=== PATIENT | female | born 1945 | race Two or more races ===

== ENCOUNTER 2020-04-13 05:43 | Day surgery (SDC) | payer OTHER ==
[~2020-04-13 05:43] MED LIST: AMLO PO; CLON PO; FENOFIBRATE PO; GLUMETZA500 MG PO; HUMULIN; [UNRECOGNIZED DRUG - OTHER] PO
== END 2020-04-13 15:50 | disposition home or self-care (01) ==
LOC: CIR.AMB 05:43
PROVIDERS: ATTEND Colon & Rectal Surgery
DX: K64.8 Other hemorrhoids (principal); K64.4 Residual hemorrhoidal skin tags; Z20.828 Contact with and (suspected) exposure to other viral communicable diseases